=== PATIENT | male | born 1975 | race Caucasian/White ===

== ENCOUNTER 2020-03-21 09:45 | Day surgery (SDC) | payer BC ==
[~2020-03-21] VITALS: Ht 170.2 cm; Wt 73.2 kg
[~2020-03-21 09:45] MED LIST: CEPH500 PO; CYCL10 PO; Cleocin HCl300 MG PO; DESV50 PO; ESCI10 PO; HYDACE5 PO; IBUP600 PO
[2020-03-21] MEDS ORDERED: CITA20 PO (10:33)
== END 2020-03-21 12:50 | disposition home or self-care (01) ==
LOC: ORSCSDS 09:45
PROVIDERS: Orthopaedic Surgery
PROC: 0LC80ZZ Extirpation of Matter from Left Hand Tendon, Open Approach (ICD-10-PCS; principal; 2020-03-21 11:00)
DX: M79.5 Residual foreign body in soft tissue (principal)
CPT/HCPCS: J0171; J0690; J2250; J2405; J2704; J3010; J7120

== ENCOUNTER 2024-03-16 10:53 | Emergency (ER) | payer OTHER ==
[~2024-03-16] VITALS: Ht 170.2 cm; Wt 68.0 kg
[~2024-03-16 10:53] MED LIST changes: +CITA20 PO; +Morphine Sulfate 4 MG/1 ML Injection ONE
[2024-03-16] MEDS ORDERED: NS 1,000 ML IV SCH (11:00)
[2024-03-16] MEDS ORDERED: CeFAZolin Sodium 2,000 MG in NS 100 ML IV ONE (11:00)
[2024-03-16] MEDS ORDERED: Morphine Sulfate 4 MG/1 ML Injection IV ONE ×2 (11:00)
[2024-03-16] MEDS ORDERED: Diphth,Pertuss(Acell),Tet Vac 0.5 ML VIAL IM ONE (11:05)
[2024-03-16 11:18] LABS: Calcium, Ionized (POC) 1.11 mmol/L (1.10-1.46); Chloride (POC) 101 mmol/L (98-108); Creatinine (POC) 1.3 mg/dL (0.8-1.3); Glucose (ISTAT POC) 293 mg/dL (70-99); Hemoglobin (POC) 10.2 g/dL (13.5-17.5); Potassium (POC) 3.1 mmol/L (3.5-5.5); Sodium (POC) 137 mmol/L (135-148); Total CO2 (POC) 16 mmol/L (21-32)
[2024-03-16 11:21] VITALS: BP 112/94
[2024-03-16 11:25] LABS: BASOPHILS ABSOLUTE AUTO 0.09 K/mm3 (0.00-0.23); BASOPHILS PERCENT AUTO 1 % (0-2); EOSINOPHILS ABSOLUTE AUTO 0.25 K/mm3 (0.00-0.68); EOSINOPHILS PERCENT AUTO 2 % (0-6); Hematocrit 30.7 % (37.0-53.0); Hemoglobin 10.4 g/dL (13.5-17.5); IMMATURE GRAN ABSOLUTE AUTO 0.18 K/mm3 (0.00-0.10); IMMATURE GRAN PERCENT AUTO 1 % (0-1); LYMPHOCYTES ABSOLUTE AUTO 2.74 K/mm3 (0.84-5.20); LYMPHOCYTES PERCENT AUTO 19 % (21-46); MONOCYTES ABSOLUTE AUTO 1.11 K/mm3 (0.16-1.47); MONOCYTES PERCENT AUTO 8 % (4-13); Mean Corpuscular HGB 32.4 pg (26.0-34.0); Mean Corpuscular HGB Conc 33.9 g/dL (31.5-36.5); Mean Corpuscular Volume 96 fL (80-100); NEUTROPHILS ABSOLUTE AUTO 10.12 K/mm3 (1.96-9.15); NEUTROPHILS PERCENT AUTO 70 % (41-73); Platelet Count 330 K/mm3 (150-400); RDW Coefficient Variation 12.8 % (11.7-14.2); RDW Standard Deviation 45.1 fL (35.1-46.3); Red Blood Cell Count 3.21 M/mm3 (4.30-5.90); White Blood Cell Count 14.49 K/mm3 (4.00-11.30)
[2024-03-16] MEDS ORDERED: METPHE10 PO (11:29)
[2024-03-16] MEDS ORDERED: SERT100 PO (11:30)
[2024-03-16 11:37] LABS: International Normalized Ratio 1.12; Prothrombin Time Results 11.9 Sec (9.7-11.5)
[2024-03-16 11:41] LABS: Alanine Aminotransfer (ALT/SGP 30 U/L (12-78); Albumin, Blood 3.1 g/dL (3.4-5.0); Albumin/Globulin Ratio 1.5 (0.8-1.8); Alk Phos 50 U/L (50-136); Anion Gap 18 mmol/L (3-11); Aspartate Aminotrans (AST/SGOT 25 U/L (12-37); Bilirubin, Total 0.5 mg/dL (0.1-1.0); Blood Urea Nitrogen 12 mg/dL (8-24); CO2, Blood 17 mmol/L (21-32); Calcium, Blood 8.5 mg/dL (8.5-10.1); Chloride, Blood 108 mmol/L (98-108); Creatinine, Blood 1.09 mg/dL (0.60-1.20); Ethanol (Alcohol), Blood, Med <3 mg/dL; Globulin, Blood 2.1 g/dL (2.2-4.0); Glomerular Filtration Rate 83 (60-); Glucose, Blood 301 mg/dL (70-99); Potassium, Blood 3.3 mmol/L (3.5-5.5); Sodium, Blood 140 mmol/L (136-145); Total Protein, Blood 5.2 g/dL (6.4-8.2)
== END 2024-03-16 11:53 | disposition short-term general hospital (02) ==
LOC: ER 10:53
PROVIDERS: Student in an Organized Health Care Education/Training Program
DX: S71.142A Puncture wound with foreign body, left thigh, initial encounter (principal); W34.00XA Accidental discharge from unspecified firearms or gun, initial encounter; Z88.0 Allergy status to penicillin
CPT/HCPCS: 73552; 80047; 80053; 80320; 83690; 85014; 85025; 85610; 86850; 86900; 86901; 90471; 90715; 96365; 96375; 96376; 99291-25; G0390; J0690; J2270; J7030

== ENCOUNTER 2025-03-13 09:10 | Emergency (ER) | payer OTHER ==
[~2025-03-13] VITALS: Ht 170.2 cm; Wt 72.6 kg
[~2025-03-13 09:10] MED LIST changes: +METPHE10 PO; -Morphine Sulfate 4 MG/1 ML Injection ONE; +SERT100 PO
[2025-03-13 09:31] VITALS: BP 139/93
[2025-03-13] MEDS ORDERED: Tetracaine HCl/Pf 0.5% Opth Soln 4 ml LEFTEYE ONE (10:25)
[2025-03-13] MEDS ORDERED: Fluorescein Sod 1MG Opth Strips LEFTEYE ONE (10:25)
[2025-03-13] MEDS ORDERED: Timolol 0.5% Opth Soln 5 ML RIGHTEYE ONE (11:15)
[2025-03-13] MEDS ORDERED: OPTH RIGHTEYE ONE (11:15)
[2025-03-13] MEDS ORDERED: Brimonidine Tartrate 0.2% Opth 5 ml RIGHTEYE ONE (11:15)
[2025-03-13] MEDS ORDERED: PILOCARPINE 1% RIGHTEYE ONE (11:15)
== END 2025-03-13 12:30 | disposition home or self-care (01) ==
LOC: ER 09:10
DX: H40.211 Acute angle-closure glaucoma, right eye (principal); B02.30 Zoster ocular disease, unspecified; F17.220 Nicotine dependence, chewing tobacco, uncomplicated; Z88.0 Allergy status to penicillin; Z79.899 Other long term (current) drug therapy
CPT/HCPCS: 99283; A9270